=== PATIENT | male | born 1985 | race Caucasian/White ===

== ENCOUNTER 2019-04-13 11:13 | Outpatient (CLI) | payer BC, SELFPAY ==
[2019-04-15 05:48] LABS: FSH 10.6 mIU/mL (1.6-8.0); LH 6.6 mIU/mL (1.5-9.3)
[2019-04-15 09:53] LABS: Testosterone Total 302 ng/dL (250-1100)
== END 2019-04-13 11:14 | disposition home or self-care (01) ==
DX: E66.8 Other obesity (principal)
CPT/HCPCS: 36415; 83001; 83002; 84403